=== PATIENT | male | born 1990 | race Caucasian/White ===

== ENCOUNTER 2017-03-16 14:35 | Emergency (ER) | payer OTHER ==
--- NOTE | 2017-03-16 16:56 | ER Document Report ---
ED Neck/Back Problem - General Chief Complaint: Low Back Pain Stated Complaint: BACK PAIN Time Seen by Provider: 03/16/17 16:42 Notes: 26 yo male c/o acute low back pain x 1 day. felt sharp pain to mid low back when bending over today. no radiculopathy, no paresthesia, no bowel/bladder dysfunction. denies fever. no trauma. 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 admits to lifting an ice chest for his sister 3 days ago, but did not feel any pain at that time. no difficulty walking. no previous back pain. no hx/o metastatic dz. TRAVEL OUTSIDE OF THE [place] IN LAST 30 DAYS: No - HPI Patient complains to provider of: Pain Onset: This morning Onset: Sudden Timing: Waxing and waning Quality of pain: Achy, Sharp Pain Level: 3 Context: Bending Recent injury: No Associated symptoms: None. denies: Fever, Incontinence, Motor loss, Numbness/ tingling, Radiation to leg, Unable to urinate Exacerbated by: Other - bending Similar symptoms previously: No Recently seen / treated by doctor: No - Related Data Allergies/Adverse Reactions: No Known Allergies Allergy (Unverified 03/16/17 14:36) Past Medical History - General Information source: Patient - Social History Smoking Status: Never Smoker Frequency of alcohol use: None Drug Abuse: None Lives with: Family Family History: Reviewed & Not Pertinent Patient has suicidal ideation: No Patient has homicidal ideation: No - Medical History Medical History: Negative Review of Systems - Review of Systems Constitutional: No symptoms reported EENT: No symptoms reported Cardiovascular: No symptoms reported Respiratory: No symptoms reported Gastrointestinal: No symptoms reported Genitourinary: No symptoms reported Male Genitourinary: No symptoms reported Musculoskeletal: No symptoms reported Skin: No symptoms reported Hematologic/Lymphatic: No symptoms reported Neurological/Psychological: No symptoms reported -: Yes All other systems reviewed and negative Physical Exam - Vital signs Vitals: Temp Pulse Resp BP Pulse Ox 97.8 F 86 16 152/78 H 98 03/16/17 14:48 03/16/17 14:48 03/16/17 14:48 03/16/17 14:48 03/16/17 14:48 Interpretation: Normal - General General appearance: Appears well, Alert - HEENT Head: Normocephalic, Atraumatic Eyes: Normal Pupils: PERRL - Respiratory Respiratory status: No respiratory distress Chest status: Nontender Breath sounds: Normal Chest palpation: Normal - Cardiovascular Rhythm: Regular Heart sounds: Normal auscultation Murmur: No - Abdominal Inspection: Normal Distension: No distension Bowel sounds: Normal Tenderness: Nontender Organomegaly: No organomegaly - Back Back: Tender - mild tenderness over L3-4. neg SLT. neg heel/toe - Extremities General upper extremity: Normal inspection, Nontender, Normal color, Normal ROM , Normal temperature General lower extremity: Normal inspection, Nontender, Normal color, Normal ROM , Normal temperature, Normal weight bearing. No: Gema's sign - Neurological Neuro grossly intact: Yes Cognition: Normal Orientation: AAOx4 Alice Coma Scale Eye Opening: Spontaneous [place] Coma Scale Verbal: Oriented Alice Coma Scale Motor: Obeys Commands [place] Coma Scale Total: 15 Speech: Normal Motor strength normal: LUE, RUE, LLE, RLE Sensory: Normal - Psychological Associated symptoms: Normal affect, Normal mood - Skin Skin Temperature: Warm Skin Moisture: Dry Skin Color: Normal Course - Re-evaluation Re-evalutation: 03/16/17 16:53 pt presents with acute low back pain without signs of spinal cord compression, cauda equina, infection, aneurysm or other serious etiology. pt is neurologically intact, independently and steadily ambulatory without paresthesia or neurologic deficits. Given the extremely low risk of these diagnoses, further testing in not indicated today. home care, f/u with pcp, ED return precautions discussed with pt. pt is agreeable with plan and stable for discharge. short course of anti-inflammatory medication and muscle relaxant provided. - Vital Signs Vital signs: Temp Pulse Resp BP Pulse Ox 97.8 F 86 16 152/78 H 98 03/16/17 14:48 03/16/17 14:48 03/16/17 14:48 03/16/17 14:48 03/16/17 14:48 Discharge - Discharge Clinical Impression: Acute low back pain Qualifiers: Back pain laterality: midline Sciatica presence: without sciatica Qualified Code(s): M54.5 - Low back pain Instructions: Ice Packs ([facility]), Warm Packs ([facility]), Low Back Pain ([facility]), Muscle Relaxers ([facility]), Ibuprofen (General) ([facility]) Additional Instructions: please take medications as prescribed gentle stretches as demonstrated follow up with primary care if symptoms persist more than 10 days return to ER for any worsening Prescriptions: Ibuprofen [Motrin 800 Mg Tablet] 800 mg PO Q6H #20 tablet Methocarbamol [Robaxin 500 Mg Tablet] 1,000 mg PO Q6 #30 tablet Forms: Return to Work
[2017-03-16 17:27] VITALS: BP 135/74
== END 2017-03-16 17:26 | disposition home or self-care (01) ==
LOC: ER 14:35
DX: M54.5 Low back pain (principal)
CPT/HCPCS: 99283

== ENCOUNTER 2018-02-24 13:33 | Emergency (ER) | payer OTHER ==
[2018-02-24] MEDS ORDERED: NAPROXEN 250 MG TABLET PO ONE (14:05)
[2018-02-24] MEDS ORDERED: PROCHLORPERAZINE MALEATE 10 MG TABLET PO ONE (14:06)
[2018-02-24] MEDS ORDERED: DIPHENHYDRAMINE HCL 50 MG CAPSULE PO ONE (14:06)
--- NOTE | 2018-02-24 14:09 | ER Document Report ---
ED Medical Screen (RME) - General Chief Complaint: Headache Stated Complaint: HEADACHE Time Seen by Provider: 02/24/18 14:02 Notes: 27-year-old male patient complained of a headache for 1/2 days. Took unknown [id number] headache medication his mother gave him which helped and the headache went away. He got up this morning and the headache was present again, so he took that medication again and came to the emergency room. He took the medicine about 11:00 this morning. He complains of the headache being in the temporal area predominantly. Brief exam shows some tenderness to palpate the eyeballs. Some tenderness palpate the temporal area. No frontal sinus percussion tenderness, no maxillary sinus percussion or pressure tenderness. No pain on palpating the inner canthi of the eyes. Patient will be given oral Compazine, Benadryl, and Naprosyn and moved to the main ED for further evaluation. I have greeted and performed a rapid initial assessment of this patient. A comprehensive ED assessment and evaluation of the patient, analysis of test results and completion of the medical decision making process will be conducted by additional ED providers. TRAVEL OUTSIDE OF THE [place] IN LAST 30 DAYS: No - Related Data Allergies/Adverse Reactions: No Known Allergies Allergy (Verified 02/24/18 13:34) Past Medical History - Social History Chew tobacco use (# tins/day): No Drug Abuse: None Renal/ Medical History: Denies: Hx Peritoneal Dialysis Physical Exam - Vital signs Vitals: Temp Pulse Resp BP Pulse Ox 97.9 F 95 16 151/83 H 97 02/24/18 13:36 02/24/18 13:36 02/24/18 13:36 02/24/18 13:36 02/24/18 13:36 Course - Vital Signs Vital signs: Temp Pulse Resp BP Pulse Ox 97.9 F 95 16 151/83 H 97 02/24/18 13:36 02/24/18 13:36 02/24/18 13:36 02/24/18 13:36 02/24/18 13:36
--- NOTE | 2018-02-24 14:19 | ER Document Report ---
ED Headache - General Chief Complaint: Headache Stated Complaint: HEADACHE Time Seen by Provider: 02/24/18 14:02 Mode of Arrival: Ambulatory Information source: Patient Notes: Pt presents complaining of temporal headache off/on that started yesterday. Pt states he did take some DOSHI medicine at home that helped his DOSHI, but when it started to come back today, he decided to come to ER to be seen. Patient denies any recent illness or fever. Patient denies any head injury. Patient denies any photophobia or phonophobia. Patient denies any IV drug use. TRAVEL OUTSIDE OF THE [place] IN LAST 30 DAYS: No - HPI Patient complains to provider of: Headache Onset: Yesterday Onset was: Gradual Timing: Still present Quality of pain: Achy Pain Level: 3 Associated symptoms: denies: Chills, Confusion, Double/blurred vision, Fever, Nausea/vomiting, Neck pain, Photophobia, Stiff neck, Trouble walking Exacerbated by: denies: Light, Noise Similar symptoms previously: No Recently seen / treated by doctor: No - Related Data Allergies/Adverse Reactions: No Known Allergies Allergy (Verified 02/24/18 13:34) Past Medical History - General Information source: Patient - Social History Smoking Status: Never Smoker Chew tobacco use (# tins/day): No Drug Abuse: None 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 denies: Fever, Recent illness EENT: No symptoms reported. denies: Blurred vision Cardiovascular: No symptoms reported Respiratory: No symptoms reported. denies: Cough, Short of breath Gastrointestinal: No symptoms reported. denies: Abdominal pain, Diarrhea, Nausea, Vomiting Genitourinary: No symptoms reported Male Genitourinary: No symptoms reported Musculoskeletal: No symptoms reported. denies: Back pain, Neck pain Skin: No symptoms reported Hematologic/Lymphatic: No symptoms reported Neurological/Psychological: Headaches. denies: Confusion, Weakness Physical Exam - Vital signs Vitals: Temp Pulse Resp BP Pulse Ox 97.9 F 95 16 151/83 H 97 02/24/18 13:36 02/24/18 13:36 02/24/18 13:36 02/24/18 13:36 02/24/18 13:36 - General General appearance: Appears well, Alert In distress: None - HEENT Head: Normocephalic, Atraumatic Eyes: Normal Conjunctiva: Normal Extraocular movements intact: Yes Eyelashes: Normal Pupils: PERRL Ears: Normal Nasal: Normal Mouth/Lips: Normal Mucous membranes: Normal Pharynx: Normal. No: Erythema, Exudate, Tonsillar hypertrophy Neck: Normal, Supple. No: Lymphadenopathy, Meningismus - Respiratory Respiratory status: No respiratory distress Chest status: Nontender Breath sounds: Normal. No: Rales, Rhonchi, Stridor, Wheezing Chest palpation: Normal - Cardiovascular Rhythm: Regular Heart sounds: S1 appreciated, S2 appreciated Murmur: No - Back Back: Normal, Nontender. No: Vertebra tenderness - Extremities General upper extremity: Normal inspection, Normal ROM General lower extremity: Normal inspection, Normal ROM - Neurological Neuro grossly intact: Yes Cognition: Normal Alice Coma Scale Eye Opening: Spontaneous Alice Coma Scale Verbal: Oriented Alice Coma Scale Motor: Obeys Commands [place] Coma Scale Total: 15 - Psychological Associated symptoms: Normal affect, Normal mood - Skin Skin Temperature: Warm Skin Moisture: Dry Skin Color: Normal Course - Re-evaluation Re-evalutation: 02/24/18 15:36 Patient reports headache pain is only down to a 2 out of 5 scale this time. Additional medications ordered. 02/24/18 17:[address] Raines regarding patient presentation and diagnostic evaluation. Patient continues with headache pain 2/5 scale, advises CT imaging of the head. 02/24/18 17:49 Patient reports headache is resolved after fluids finished infusing as well as the additional pain medication. 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 The patient is neurologically intact. Given the extremely low risk of these diagnoses further testing and evaluation for these possibilities does not appear to be indicated at this time. The patient has been instructed to return if the symptoms worsen or change in any way. - Vital Signs Vital signs: Temp Pulse Resp BP Pulse Ox 98.1 F 88 18 134/61 H 99 02/24/18 17:44 02/24/18 17:44 02/24/18 17:44 02/24/18 17:44 02/24/18 17:44 - Diagnostic Test Radiology reviewed: Reports reviewed Discharge - Discharge Clinical Impression: Headache Qualifiers: Headache type: unspecified Headache chronicity pattern: unspecified pattern Intractability: not intractable Qualified Code(s): R51 - Headache Condition: Stable Disposition: HOME, SELF-CARE Instructions: Antinausea Medication ([facility]), Intravenous Compazine for Headaches ([facility]), Use of Diphenhydramine, Headache ([facility]) Additional Instructions: Return immediately for any new or worsening symptoms Followup with your primary care provider, call tomorrow to make a followup appointment Prescriptions: Butalb/Acetaminophen/Caffeine [Fioricet (50-325-40 mg) Tablet] 1 - 2 tab PO Q4H PRN #12 each PRN Reason: Forms: Return to Work Referrals: [facility] [Provider Group] - Follow up as needed
[2018-02-24] MEDS ORDERED: NORMAL SALINE 1000 ML 1,000 ML IV ONE (15:35)
[2018-02-24] MEDS ORDERED: DEXAMETHASONE SOD PHOS INJ 10 MG/1 ML VIAL IV ONE (15:35)
[2018-02-24] MEDS ORDERED: MORPHINE SULFATE 10 MG/ML INJ IV ONE (16:55)
--- NOTE | 2018-02-24 17:33 | RADIOLOGY REPORT (SQ) ---
EXAM DESCRIPTION: CT HEAD WITHOUT COMPLETED DATE/TIME: 02/24/2018 5:21 pm REASON FOR STUDY: DOSHI COMPARISON: None. TECHNIQUE: Axial images acquired through the brain without intravenous contrast. Images reviewed wi th bone, brain and subdural windows. Additional sagittal and coronal reconstructions were generated. Images stored on PACS. All CT scanners at this facility use dose modulation, iterative reconstruction, and/or weight based d osing when appropriate to reduce radiation dose to as low as reasonably achievable (ALARA). [facility]: Dose Right [facility]: CareDose [facility]: Dose Right [facility]: Teradose 4D [facility]: Tixie ([employer] RADIATION DOSE: CT Rad equipment meets quality standard of care and radiation dose reduction techniq ues were employed. CTDIvol: 48.6 mGy. DLP: 902 mGy-cm. mGy. LIMITATIONS: None. FINDINGS: VENTRICLES: Normal size and contour. CEREBRUM: No masses. No hemorrhage. No midline shift. No evidence for acute infarction. Normal gra y/white matter differentiation. No areas of low density in the white matter. CEREBELLUM: No masses. No hemorrhage. No alteration of density. No evidence for acute infarction. EXTRAAXIAL SPACES: No fluid collections. No masses. ORBITS AND GLOBE: No intra- or extraconal masses. Normal contour of globe without masses. CALVARIUM: No fracture. PARANASAL SINUSES: No fluid or mucosal thickening. SOFT TISSUES: No mass or hematoma. OTHER: No other significant finding. IMPRESSION: NORMAL BRAIN CT WITHOUT CONTRAST. EVIDENCE OF ACUTE STROKE: NO. COMMENT: Quality ID # [id number]: Final reports with documentation of one or more dose reduction techniques (e.g., Automated exposure control, adjustment of the mA and/or kV according to patient size, use of iterative reconstruction technique) TECHNICAL DOCUMENTATION: JOB ID: [id number] [employer]- All Rights Reserved Reading location - IP/workstation name: [email or web address]
[2018-02-24 17:45] VITALS: BP 134/61
== END 2018-02-24 18:24 | disposition home or self-care (01) ==
LOC: ER 13:33
DX: R51 Headache (principal)
CPT/HCPCS: 99284; 96361; 96374; 96375; 70450; J2270; S0183; J7030; J1100

== ENCOUNTER 2019-10-31 16:17 | Emergency (ER) | payer OTHER ==
--- NOTE | 2019-10-31 16:38 | ER Document Report ---
ED Medical Screen (RME) - General Chief Complaint: Rectal Bleeding Stated Complaint: RECTAL BLEEDING Time Seen by Provider: 10/31/19 16:37 Information source: Patient Notes: This is a 29-year-old male presented to the emergency room today stating he had right red blood coming from his rectum he went to an urgent care clinic thinking it might of been a hemorrhoid he states that they suggested he come here that upon evaluation it was not a hemorrhoid and he is still leaking blood now even when he sits. It is bright red in nature. TRAVEL OUTSIDE OF THE [place] IN LAST 30 DAYS: No - Related Data Allergies/Adverse Reactions: No Known Allergies Allergy (Verified 02/24/18 13:34) Past Medical History Renal/ Medical History: Denies: Hx Peritoneal Dialysis Physical Exam - Vital signs Vitals: Temp Pulse Resp BP Pulse Ox 97.6 F 116 H 18 153/87 H 99 10/31/19 16:23 10/31/19 16:23 10/31/19 16:23 10/31/19 16:23 10/31/19 16:23 Course - Vital Signs Vital signs: Temp Pulse Resp BP Pulse Ox 97.6 F 116 H 18 153/87 H 99 10/31/19 16:23 10/31/19 16:23 10/31/19 16:23 10/31/19 16:23 10/31/19 16:23
[2019-10-31 17:43] LABS: ABSOLUTE BASOPHILS # (AUTO) 0.1 10^3/uL (0.0-0.2); ABSOLUTE EOSINOPHILS # (AUTO) 0.1 10^3/uL (0.0-0.6); ABSOLUTE LYMPHOCYTES (AUTO) 1.2 10^3/uL (0.5-4.7); ABSOLUTE MONOCYTES (AUTO) 0.8 10^3/uL (0.1-1.4); ABSOLUTE NEUT (AUTO) 11.1 10^3/uL (1.7-8.2); BASOPHILS % (AUTO) 0.9 % (0-2); EOSINOPHILS % (AUTO) 0.8 % (0-6); HEMATOCRIT 46.3 % (37.9-51.0); HEMOGLOBIN 16.3 g/dL (13.5-17.0); LYMPHOCYTES % (AUTO) 9.2 % (13-45); MEAN CORPUSCULAR HEMOGLOBIN 29.6 pg (27.0-33.4); MEAN CORPUSCULAR HGB CONC 35.1 g/dL (32.0-36.0); MEAN CORPUSCULAR VOLUME 84 fl (80-97); PLATELET COUNT 325 10^3/uL (150-450); RED BLOOD COUNT 5.49 10^6/uL (4.35-5.55); RED CELL DISTRIBUTION WIDTH 12.8 % (11.5-14.0); SEGMENTED NEUTROPHILS % (AUTO) 83.1 % (42-78); TOTAL CELLS COUNTED % (AUTO) 100 %; WHITE BLOOD COUNT 13.3 10^3/uL (4.0-10.5)
[2019-10-31 17:57] LABS: URINE AMPHETAMINES SCREEN NEGATIVE; URINE BARBITURATES SCREEN NEGATIVE; URINE BENZODIAZEPINES SCREEN NEGATIVE; URINE COCAINE SCREEN NEGATIVE; URINE MARIJUANA (THC) SCREEN NEGATIVE; URINE METHADONE SCREEN NEGATIVE; URINE PHENCYCLIDINE SCREEN NEGATIVE
[2019-10-31 17:59] LABS: ALBUMIN 4.9 g/dL (3.5-5.0); ALKALINE PHOSPHATASE 84 U/L (38-126); ANION GAP 10 (5-19); ASPARTATE AMINO TRANSFERASE 33 U/L (17-59); BILIRUBIN,DIRECT 0.2 mg/dL (0.0-0.4); BILIRUBIN,TOTAL 0.9 mg/dL (0.2-1.3); BLOOD UREA NITROGEN 16 mg/dL (7-20); CARBON DIOXIDE 26 mmol/L (22-30); CHLORIDE 102 mmol/L (98-107); GLUCOSE 109 mg/dL (75-110); POTASSIUM 4.5 mmol/L (3.6-5.0); TOTAL PROTEIN 8.5 g/dL (6.3-8.2)
--- NOTE | 2019-10-31 20:06 | EKG REPORT ---
SEVERITY:- OTHERWISE NORMAL ECG - SINUS RHYTHM BORDERLINE LEFT AXIS DEVIATION : Confirmed by: Briseyda Chaudhari MD 31-Oct-2019 20:05:33
[2019-10-31 20:11] LABS: PROTHROMBIN TIME 13.2 SEC (11.4-15.4)
[2019-10-31 20:12] LABS: PARTIAL THROMBOPLASTIN TIME 33.2 SEC (23.5-35.8)
[2019-10-31 20:13] LABS: AMORPHOUS SEDIMENT,URINE 1+ /HPF; APPEARANCE,URINE TURBID; BILIRUBIN,URINE NEGATIVE (NEGATIVE); COLOR,URINE YELLOW; GLUCOSE, URINE NEGATIVE (NEGATIVE); KETONES,URINE NEGATIVE (NEGATIVE); LEUKOCYTE ESTERASE,URINE NEGATIVE (NEGATIVE); NITRITE,URINE NEGATIVE (NEGATIVE); PROTEIN,URINE NEGATIVE (NEGATIVE); URINE SPECIFIC GRAVITY 1.029
--- NOTE | 2019-10-31 20:46 | ER Document Report ---
ED General - General Chief Complaint: Rectal Bleeding Stated Complaint: RECTAL BLEEDING Time Seen by Provider: 10/31/19 16:37 TRAVEL OUTSIDE OF THE [place] IN LAST 30 DAYS: No - HPI Notes: 29-year-old male history of intermittent constipation, hemorrhoids presents with rectal bleeding intermittently for 1 week. Patient says he has had bright red blood from his rectum with stools and few times has come out on its own. Went to urgent care who referred patient to the ED. Patient had a similar episode of this approximately 1 month before and resolved on its own without intervention. Patient says blood has stained underwear but quantity has never been more than enough to stain fabric, too small to be measured in spoonfuls or cupfuls. Patient otherwise feels well. Patient denies any abdominal pain, anal trauma, foreign bodies, anal sex, bleeding diatheses, family history, fever, vomiting, or anticoagulation, dizziness, chest pain, shortness of breath, and syncope. - Related Data Allergies/Adverse Reactions: No Known Allergies Allergy (Verified 02/24/18 13:34) Past Medical History - General Information source: Patient - Social History Smoking Status: Never Smoker Chew tobacco use (# tins/day): No Frequency of alcohol use: None Drug Abuse: None Family History: Reviewed & Not Pertinent Renal/ Medical History: Denies: Hx Peritoneal Dialysis Review of Systems - Review of Systems Notes: REVIEW OF SYSTEMS: CONSTITUTIONAL : Denies fever, chills, or sweats. EENT: Denies recent cold/sinus symptoms, denies throat pain CARDIOVASCULAR: Denies chest pain, DARNELL RESPIRATORY: Denies cough, denies shortness of breath. GASTROINTESTINAL: Denies abdominal pain, nausea/vomiting. GENITOURINARY: Denies difficulty urinating, painful urination. MUSCULOSKELETAL: Denies neck pain, back pain. SKIN: Denies rash or skin lesions. HEMATOLOGIC : Denies easy bruising, +bleeding LYMPHATIC: Denies swollen, enlarged glands. NEUROLOGICAL: Denies headache, denies change in gait. PSYCHIATRIC: Denies anxiety or stress or depression. Physical Exam - Vital signs Vitals: Temp Pulse Resp BP Pulse Ox 97.6 F 116 H 18 153/87 H 99 10/31/19 16:23 10/31/19 16:23 10/31/19 16:23 10/31/19 16:23 10/31/19 16:23 - Notes Notes: PHYSICAL EXAMINATION: GENERAL: Well-appearing, well-nourished and in no acute distress. HEAD: Atraumatic, normocephalic. EYES: Pupils equal round and appropriate constriction, sclera anicteric, conju nctiva are normal. ENT: nares patent, moist mucous membranes. NECK: Normal range of motion, supple without lymphadenopathy LUNGS: Normal respiratory rate and effort, speaking in full sentences HEART: Regular rate, no JVD, no lower extremity edema ABDOMEN: Soft, nontender, no guarding, no masses, no CVAT. Rectal exam nontender, no external hemorrhoids, very small amount of red blood mixed in with brown stool in rectal vault EXTREMITIES: Normal range of motion, no pitting or edema. No cyanosis. NEUROLOGICAL: Awake, alert, conversing appropriately, moves all extremities spontaneously. PSYCH: Normal mood, normal affect. SKIN: Warm, Dry, normal turgor, no rashes or lesions noted. Course - Re-evaluation Re-evalutation: 10/31/19 20:45 Patient has had very small amounts of rectal bleeding over the course of 1 week. Patient has no anal tenderness, fever, or discharge, no signs of anal fissure or perianal abscess. Patient tachycardic at time triage vitals were taken immediately after exerting himself to move to triage room, tachycardia had resolved at time of my exam without any intervention. Unlikely secondary to blood loss given patient has had very small volume of bleeding and has normal hemoglobin and currently normal heart rate. No signs of diverticular bleed and no abdominal pain or tenderness. No signs of significant hemorrhoidal bleeding that would require emergent surgical intervention. Patient stable for follow-up outpatient with leaflet or newspaper deliverer who can refer patient to ceramic tiler if necessary. I obtained coags to ensure that there is no bleeding diathesis that was contributing to patient's symptoms which were normal. No signs of liver or renal dysfunction causing symptoms. Patient has leukocytosis of 13, but no signs of infection on his exam, no signs on his history, I discussed this with patient and informed him that there was an abnormal finding in his blood work and that he should follow this up with a primary doctor and that there are dangerous diseases such as leukemia that can cause high white blood cells so this follow-up is very important. Gave patient instructions on following up with leaflet or newspaper deliverer and gave patient extensive return to ED precautions which he demonstrated understanding of. Patient ready for discharge, denies having any other questions or concerns at time of discharge. Will give patient copy of all results to take with him for follow-up. - Vital Signs Vital signs: Temp Pulse Resp BP Pulse Ox 98.3 F 98 17 136/65 H 100 10/31/19 20:43 10/31/19 20:43 10/31/19 20:43 10/31/19 20:43 10/31/19 20:43 - Laboratory Result Diagrams: 10/31/19 17:20 10/31/19 17:20 Laboratory results interpreted by me: 10/31/19 10/31/19 10/31/19 17:20 17:20 17:20 WBC 13.3 H Lymph % (Auto) 9.2 L Absolute Neuts (auto) 11.1 H Seg Neutrophils % 83.1 H Total Protein 8.5 H Urine Blood SMALL H Urine Urobilinogen 2.0 H Discharge - Discharge Clinical Impression: Anal bleeding High blood pressure Qualifiers: Hypertension type: unspecified Qualified Code(s): I10 - Essential (primary) hypertension Leukocytosis Qualifiers: Leukocytosis type: unspecified Qualified Code(s): D72.829 - Elevated white blood cell count, unspecified Disposition: HOME, SELF-CARE Additional Instructions: Rectal Bleeding, Unclear Cause No definite cause has been found for the rectal bleeding you have experienced. Among the possible causes are internal or external hemorrhoids (internal hemorrhoids can't be felt on the outside), an anal fissure (a crack at the anal ring), infections or inflammatory diseases of the colon, tumors or polyps, or diverticula (diverticula are outpouchings from the colon wall). To establish a cause for your bleeding (or at least make certain there is no serious problem such as a tumor), further evaluation will be necessary. This may include special X-rays, or passage of a scope up into the colon. Be sure to keep your follow-up appointment. Should you develop brisk bleeding, abdominal pain, fever, lightheadedness, or fever, call the doctor or return at once. Hemorrhoids You likely have hemorrhoids. These are formed by enlargement of veins around the anus. The cause is increased pressure in the veins, from or straining at bowel movements. Hemorrhoids often cause itching and bleeding with bowel movements. . Eat a high-fiber diet. Stool softeners such as Metamucil will help. You should call the doctor or return if you develop fever, increasing pain, or an enlarging mass around the anus, or if you simply fail to improve with autumn tment. Follow-up with your primary doctor and leaflet or newspaper deliverer within 1 week. If you should develop increased bleeding, dizziness, chest pain, trouble breathing, fainting, abdominal pain, fever, or any other worsening or alarming symptoms return to the emergency department immediately. Your blood pressure was elevated during this emergency department visit, have this rechecked by primary doctor as undiagnosed high blood pressure can cause heart attacks, strokes, and . You also had high white blood cells which you should discuss with the primary doctor as this can be related to dangerous conditions such as leukemia a type of cancer. Referrals: JAMES MCCLURE MD [ACTIVE STAFF] - Follow up as needed [facility] [Provider Group] - Follow up as needed
[2019-10-31 21:01] VITALS: BP 136/65
== END 2019-10-31 21:35 | disposition home or self-care (01) ==
LOC: ER 16:17
DX: K62.5 Hemorrhage of anus and rectum (principal); D72.829 Elevated white blood cell count, unspecified; I10 Essential (primary) hypertension; K59.00 Constipation, unspecified; K64.9 Unspecified hemorrhoids
CPT/HCPCS: 36415; 80053; 80307; 81001; 84484; 85025; 85610; 85730; 93005; 93010; 99283

== ENCOUNTER 2019-11-05 10:53 | Emergency (ER) | payer OTHER ==
--- NOTE | 2019-11-05 11:24 | ER Document Report ---
ED General - General Chief Complaint: Fever Stated Complaint: FEVER Time Seen by Provider: 11/05/19 11:06 TRAVEL OUTSIDE OF THE [place] IN LAST 30 DAYS: No - HPI Notes: Chief complaint: Fever History of present illness: 29-year-old male presents for evaluation of fever. Patient is generally healthy. He was seen here last week for external hemorrhoids with some minor bleeding by another provider. He still having some irritation has a small amount of bleeding when he has a bowel movement. He says he was not given any prescription medications at time of that visit. He had gone back to see his primary care physician day and when he went in they took his temperature and found this to be 100.3. He is otherwise asymptomatic. They refused to see him in the office and he decided he should come to the emergency department. Specifically he denies respiratory symptoms, skin rashes, nausea, vomiting or diarrhea. He denies any known exposure to COVID and had no awareness of fever when he went to his physician's office. He denies headaches or myalgias. - Related Data Allergies/Adverse Reactions: No Known Allergies Allergy (Verified 02/24/18 13:34) Past Medical History - General Information source: Patient, [facility] Records - Social History Smoking Status: Never Smoker Frequency of alcohol use: None Drug Abuse: None Family History: Reviewed & Not Pertinent - Past Medical History Cardiac Medical History: Reports: None Pulmonary Medical History: Reports: None Endocrine Medical History: Denies: Hx Diabetes Mellitus Type 1, Hx Diabetes Mellitus Type 2 Renal/ Medical History: Denies: Hx Peritoneal Dialysis GI Medical History: Reports: Other - Hemorrhoids Review of Systems - Review of Systems Notes: Constitutional: As per HPI. HENT: Negative for sore throat. Eyes: Negative for visual changes. Cardiovascular: Negative for chest pain. Respiratory: Negative for shortness of breath. Gastrointestinal: As per HPI. Genitourinary: Negative for dysuria. Musculoskeletal: Negative for back pain. Skin: Negative for rash. Neurological: Negative for headaches, weakness or numbness. 10 point ROS negative except as marked above and in HPI. Physical Exam - Vital signs Vitals: Temp Pulse Resp BP Pulse Ox 98.2 F 109 H 20 135/84 H 99 11/05/19 11:11/05/19 11:11/05/19 11:11/05/19 11:11/05/19 11:07 - Notes Notes: GENERAL: Somewhat obese male of approximately stated age appearing in no acute distress. SKIN: Good turgor no rashes. HEAD: Normocephalic atraumatic. EYES: PERRLA. EOMI. Conjunctivae and sclerae clear. EARS: CANALS AND TMS CLEAR. NOSE: CLEAR. MOUTH: Moist mucosa. Good dentition. No stridor or edema. No drooling. NECK: Supple. No masses or thyromegaly. No adenopathy. Carotids 2+ without bruits. No JVD. BACK: Symmetrical without tenderness. CHEST: Respirations unlabored. Breath sounds clear and symmetrical. HEART: Regular rhythm. No murmur gallop or rub. ABDOMEN: Soft nontender without masses, organomegaly or rebound. Bowel sounds normally active. No bruits. GENITALIA: Deferred. EXTREMITIES: No edema. No calf tenderness. Cap refill less than 1.5 seconds. Dorsalis pedis and posterior tibial pulses 3+ and symmetrical. NEUROLOGICAL: GCS 15. Alert and oriented x3. Normal gait. Fluent speech. Cranial nerves II through XII intact. Sensorimotor and cerebellar normal. Norm al tone. PSYCHIATRIC: Appropriate affect. Course - Re-evaluation Re-evalutation: 11/05/19 11:23 Patient is afebrile here and I question the validity of the temperature reading done at physician's office as ambient temperature resumed 90s here now. I will send a COVID swab for the patient. He is instructed in self-isolation pending results of the testing. I am going to give him some symptomatic treatment for his hemorrhoids and suggest follow-up with primary care physician. - Vital Signs Vital signs: Temp Pulse Resp BP Pulse Ox 98.2 F 109 H 20 135/84 H 99 11/05/19 11:07 11/05/19 11:07 11/05/19 11:07 11/05/19 11:07 11/05/19 11:07 Discharge - Discharge Clinical Impression: Suspected 2019-nCoV infection, External hemorrhoids Fever Qualifiers: Fever type: unspecified Qualified Code(s): R50.9 - Fever, unspecified Condition: Stable Disposition: HOME, SELF-CARE Additional Instructions: Hemorrhoids You have hemorrhoids. These are formed by enlargement of veins around the anus. The cause is increased pressure in the veins, from or straining at bowel movements. Hemorrhoids often cause itching and bleeding with bowel movements. When a hemorrhoid becomes clotted, severe pain and swelling result. Soothing creams and suppositories are often prescribed. Warm sitz-baths may also decrease pain, swelling, and itching. Eat a high-fiber diet. Stool softeners such as Metamucil will help. Keep the area very clean. Medicated cleansing pads (such as Tucks) are useful after bowel movements. A hose-mounted shower unit (like a shower massager at low water pressure) can be used to clean around tender hemorrhoid tags. You should call the doctor or return if you develop fever, increasing pain, or an enlarging mass around the anus, or if you simply fail to improve with treatment.Use prescribed medication as directed. Soak in a warm tub for 15 minutes 3 times a day. Follow-up with your primary care provider within the next 1 week. Remain on self-isolation until you receive telephone results of your COVID testing. Return here as needed for new or worsening symptoms. Prescriptions: Hydrocortisone [Anusol-Hc] 30 gm RC ASDIR PRN 10 Days #1 cream.gm. PRN Reason: Docusate Sodium [Colace 100 mg Capsule] 100 mg PO DAILY #30 capsule
[2019-11-05 12:02] VITALS: BP 126/74
== END 2019-11-05 12:02 | disposition home or self-care (01) ==
LOC: ER 10:53
DX: K64.4 Residual hemorrhoidal skin tags (principal); R50.9 Fever, unspecified; Z20.828 Contact with and (suspected) exposure to other viral communicable diseases
CPT/HCPCS: 99283; 87635; C9803

== ENCOUNTER 2019-11-07 06:33 | Emergency (ER) | payer OTHER ==
[2019-11-07 08:22] LABS: ABSOLUTE BASOPHILS # (AUTO) 0.1 10^3/uL (0.0-0.2); ABSOLUTE EOSINOPHILS # (AUTO) 0.2 10^3/uL (0.0-0.6); ABSOLUTE LYMPHOCYTES (AUTO) 1.5 10^3/uL (0.5-4.7); ABSOLUTE MONOCYTES (AUTO) 1.3 10^3/uL (0.1-1.4); ABSOLUTE NEUT (AUTO) 12.1 10^3/uL (1.7-8.2); BASOPHILS % (AUTO) 0.6 % (0-2); HEMATOCRIT 43.5 % (37.9-51.0); HEMOGLOBIN 15.1 g/dL (13.5-17.0); LYMPHOCYTES % (AUTO) 9.6 % (13-45); MEAN CORPUSCULAR HEMOGLOBIN 29.1 pg (27.0-33.4); MEAN CORPUSCULAR HGB CONC 34.8 g/dL (32.0-36.0); MEAN CORPUSCULAR VOLUME 84 fl (80-97); MONOCYTES % (AUTO) 8.8 % (3-13); PLATELET COUNT 364 10^3/uL (150-450); RED BLOOD COUNT 5.19 10^6/uL (4.35-5.55); RED CELL DISTRIBUTION WIDTH 12.3 % (11.5-14.0); TOTAL CELLS COUNTED % (AUTO) 100 %; WHITE BLOOD COUNT 15.1 10^3/uL (4.0-10.5)
[2019-11-07 08:39] LABS: ALBUMIN 4.2 g/dL (3.5-5.0); ALKALINE PHOSPHATASE 92 U/L (38-126); ANION GAP 8 (5-19); ASPARTATE AMINO TRANSFERASE 20 U/L (17-59); BILIRUBIN,DIRECT 0.2 mg/dL (0.0-0.4); BILIRUBIN,TOTAL 0.9 mg/dL (0.2-1.3); BLOOD UREA NITROGEN 13 mg/dL (7-20); CALCIUM 9.6 mg/dL (8.4-10.2); CARBON DIOXIDE 27 mmol/L (22-30); CHLORIDE 104 mmol/L (98-107); GLUCOSE 123 mg/dL (75-110); POTASSIUM 3.8 mmol/L (3.6-5.0); TOTAL PROTEIN 7.6 g/dL (6.3-8.2)
--- NOTE | 2019-11-07 09:13 | ER Document Report ---
ED General - General Chief Complaint: Rectal Bleeding Stated Complaint: RECTAL BLEEDING Time Seen by Provider: 11/07/19 08:28 Primary Care Provider: MAYO GASTELUM MD [ACTIVE STAFF] - Follow up as needed Notes: 29-year-old male with past medical history of rectal bleeding. States he has had some rectal bleeding for one week. Denies any painful bowel movements. Notes blood in the toliet bowel. Pain has increased and he notices a mass and pain with sitting down. Was seen in the ER two times previously diagnosed with hemorrhoids, given hydrocortisone rectal and colace which has not provided relief. Denies any fevers, chills or worsening symptoms. - Related Data Allergies/Adverse Reactions: No Known Allergies Allergy (Verified 11/07/19 06:43) Home Medications: Hydrocortisone cream, colace Past Medical History - Social History Smoking Status: Never Smoker Frequency of alcohol use: None Drug Abuse: None Family History: Reviewed & Not Pertinent Endocrine Medical History: Denies: Hx Diabetes Mellitus Type 1, Hx Diabetes Mellitus Type 2 Renal/ Medical History: Denies: Hx Peritoneal Dialysis Review of Systems - Review of Systems Constitutional: No symptoms reported EENT: No symptoms reported Cardiovascular: No symptoms reported Respiratory: No symptoms reported Gastrointestinal: See HPI Genitourinary: No symptoms reported Male Genitourinary: No symptoms reported Skin: No symptoms reported Hematologic/Lymphatic: No symptoms reported Neurological/Psychological: No symptoms reported Physical Exam - Vital signs Vitals: Temp Pulse Resp BP Pulse Ox 98.5 F 122 H 20 152/101 H 100 11/07/19 06:39 11/07/19 06:39 11/07/19 06:39 11/07/19 06:39 11/07/19 06:39 Interpretation: Normal - Notes Notes: Adult General: GENERAL: Alert, interacts well. No acute distress HEAD: Normocephalic, atraumatic EYES: Pupils equal, round and reactive to light. Extraocular movements intact. ENT: Oral mucosa moist, tongue midline. Oropharynx unremarkable. Airway patent. Nares patent, sinuses nontender, ear canals unremarkable, TMs intact. No Trismus. NECK: Full range of motion. Supple. Trachea midline. No lymphadenopathy. LUNGS: Clear to auscultation bilaterally, no wheezes, rales, or rhonchi. No respiratory distress. Nontender chest wall. HEART: Regular rate and rhythm. No murmurs, rubs or gallops. ABDOMEN: Soft, nontender. Nondistended. (-) [place] sign. Bowel sounds present in all 4 quadrants. No rebound, guarding or masses. GENITOURINARY: Rectal tenderness to the right inner buttock, warmth, swelling tenderness, active bleeding and purulence on inner right buttock. Rectum is tender to palpation. Good rectal tone. EXTREMITIES: Moves all 4 extremities spontaneously. BACK: No cervical, thoracic, lumbar midline tenderness. No saddle anesthesia, normal distal neurovascular exam. Moves all extremities with full range of motion. NEUROLOGICAL: Alert and oriented x3. Normal speech. Strength 5/ 5 in all extremities. PSYCH: Normal affect, normal mood. SKIN: Warm, dry, normal turgor. No rashes or lesions noted. Course - Re-evaluation Re-evalutation: 11/07/19 11:03 Ct scan abdomen pelvis ordered. It notes a perirectal abscess approximately 4.7 x 4.6 x 1.[address] Puente was called. States that he will come see the patient. Dr. Puente agrees to drain the abscess. Recommends antibiotics and pain medications. Antibiotics prescribed and pain medications prescribed. Patient was reevaluted. States he has had improvement in his pain. I discussed wound care and return precautions. Patient is aware he is to follow up with Dr. Puente on Tuesday. Return precautions discussed. Patient acknowledges and verbalizes understanding of instructions and plan. All questions answered. - Vital Signs Vital signs: Temp Pulse Resp BP Pulse Ox 98.2 F 101 H 18 122/67 97 11/07/19 14:00 11/07/19 14:00 11/07/19 14:00 11/07/19 14:00 11/07/19 14:00 - Laboratory Result Diagrams: 11/07/19 08:05 11/07/19 08:05 Laboratory results interpreted by me: 11/07/19 11/07/19 08:05 08:05 WBC 15.1 H Lymph % (Auto) 9.6 L Absolute Neuts (auto) 12.1 H Seg Neutrophils % 80.0 H Glucose 123 H Discharge - Discharge Clinical Impression: Perianal abscess Condition: Stable Disposition: HOME, SELF-CARE Instructions: Abscess ([facility]), Post Incision and Drainage Additional Instructions: You have been diagnosed with a perianal abscess. This has been drained at bedside by our surgeon Dr. Puente. He has given you return precautions and wound care and recommends you follow up in his office on Tuesday. Please call his office to schedule an appointment. Please follow the wound care instructions. I will prescribe you antibiotics and pain medicine at this time. Please return to the emergency department if you have worsening symptoms or development of new symptoms. Please also follow-up with your primary care provider to ensure resolution of your symptoms. Prescriptions: Clindamycin HCl 300 mg PO QID 7 Days #28 capsule Referrals: MAYO GASTELUM MD [ACTIVE STAFF] - Follow up as needed
--- NOTE | 2019-11-07 10:20 | RADIOLOGY REPORT (SQ) ---
EXAM DESCRIPTION: CT ABD/PELVIS WITH IV ONLY IMAGES COMPLETED DATE/TIME: 11/07/2019 10:08 am REASON FOR STUDY: perirectal abscess COMPARISON: None. TECHNIQUE: CT scan of the abdomen and pelvis performed using helical scanning technique with dynamic intravenous contrast injection. No oral contrast. Images reviewed with lung, soft tissue, and bone windows. Reconstructed coronal and sagittal MPR images reviewed. Delayed images for evaluation of the urinary system also acquired. All images stored on PACS. All CT scanners at this facility use dose modulation, iterative reconstruction, and/or weight based d osing when appropriate to reduce radiation dose to as low as reasonably achievable (ALARA). [facility]: Dose Right [facility]: CareDose [facility]: Dose Right [facility]: Teradose 4D [facility]: The Gluten Free Gourmet CONTRAST TYPE AND DOSE: contrast/concentration: Isovue 350.00 mmol/ml; Total Contrast Delivered: 100 .0 ml; Total Saline Delivered: 67.9 ml RENAL FUNCTION: GFR > 60. RADIATION DOSE: CT Rad equipment meets quality standard of care and radiation dose reduction techniq ues were employed. CTDIvol: NaN - NaN mGy. DLP: 0 mGy-cm.. LIMITATIONS: None. FINDINGS: LOWER CHEST: No significant findings. No nodules or infiltrates. LIVER: Normal size. No masses. No dilated ducts. SPLEEN: Normal size. No focal lesions. PANCREAS: No masses. No significant calcifications. No adjacent inflammation or peripancreatic fluid collections. Pancreatic duct not dilated. GALLBLADDER: No identified stones by CT criteria. No inflammatory changes to suggest cholecystitis. ADRENAL GLANDS: No significant masses or asymmetry. RIGHT KIDNEY AND URETER: No solid masses. No significant calcifications. No hydronephrosis or hyd roureter. LEFT KIDNEY AND URETER: No solid masses. No significant calcifications. No hydronephrosis or hydr oureter. AORTA AND VESSELS: No aneurysm. No dissection. Renal arteries, SMA, celiac without stenosis. RETROPERITONEUM: No retroperitoneal adenopathy, hemorrhage or masses. BOWEL AND PERITONEAL CAVITY: No masses or inflammatory changes. No free fluid or peritoneal masses. APPENDIX: Normal. PELVIS: The bladder is largely decompressed. No pelvic mass or free fluid. ABDOMINAL WALL: No masses. No hernias. BONES: No acute findings. OTHER: There is a 4.7 x 4.6 x 1.9 cm rim enhancing fluid collection right anterolateral to the rectum IMPRESSION: 4.7 x 4.6 x 1.9 cm perirectal abscess. TECHNICAL DOCUMENTATION: JOB ID: [id number] Quality ID # [id number]: Final reports with documentation of one or more dose reduction techniques (e.g., Au tomated exposure control, adjustment of the mA and/or kV according to patient size, use of iterative reconstruction technique) 2010 [employer]- All Rights Reserved Reading location - IP/workstation name: [email or web address]
--- NOTE | 2019-11-07 11:17 | PDOC CONSULTATION ---
Consultation Consult Date: 11/07/19 Provider Consulted: SURGICAL SURGICALIST Consult reason:: buttock abscess History of Present Illness History of Present Illness: JOHN AREVALO IV is a 29 year old male seen in consultation at the request of the emergency physician. This is a patient with a 2-week history of perirectal pain and swelling. The patient has been diagnosed with a perianal abscess, involving the buttock and perineum. He has increasing redness, pain, and now purulent drainage. He does report fevers and chills at home. He denies nausea, vomiting, headache, dizziness, orthostasis, chest pain, shortness of breath, melena, hematochezia, or hematemesis. His pain is rated at 8 out of 10. It is sharp and stabbing. It does not radiate. Past Medical History Endocrine Medical History: Denies: Diabetes Mellitus Type 1, Diabetes Mellitus Type 2 Social History Smoking Status: Never Smoker Hx Recreational Drug Use: No Hx Prescription Drug Abuse: No Family History Family History: Reviewed & Not Pertinent Parental Family History Reviewed: Yes Children Family History Reviewed: Yes Sibling(s) Family History Reviewed.: Yes Medication/Allergy Home Medications: Ibuprofen [Motrin 800 Mg Tablet] 800 mg PO Q6H #20 tablet 03/16/17 Methocarbamol [Robaxin 500 Mg Tablet] 1,000 mg PO Q6 #30 tablet 03/16/17 Butalb/Acetaminophen/Caffeine [Fioricet (50-325-40 mg) Tablet] 1 - 2 tab PO Q4H PRN #12 each 02/24/18 Docusate Sodium [Colace 100 mg Capsule] 100 mg PO DAILY #30 capsule 11/05/19 Hydrocortisone [Anusol-Hc] 30 gm RC ASDIR PRN 10 Days #1 cream.gm. 11/05/19 Allergies/Adverse Reactions: No Known Allergies Allergy (Verified 11/07/19 06:43) Review of Systems Constitutional: PRESENT: chills. ABSENT: anorexia, fatigue, weakness Eyes: ABSENT: visual disturbances Ears: ABSENT: hearing changes Nose, Mouth, and Throat: ABSENT: sore throat Cardiovascular: ABSENT: chest pain Respiratory: ABSENT: cough, dyspnea Gastrointestinal: PRESENT: other - Rectal pain and drainage. ABSENT: abdominal pain, bloating Genitourinary: ABSENT: dysuria Musculoskeletal: ABSENT: back pain Integumentary: ABSENT: diaphoresis Neurological: ABSENT: confusion, convulsions, dizziness Psychiatric: ABSENT: anxiety, depression Endocrine: ABSENT: cold intolerance, heat intolerance Hematologic/Lymphatic: ABSENT: easy bleeding, easy bruising Physical Exam Vital Signs: Temp Pulse Resp BP Pulse Ox 98.8 F 98 18 136/95 H 100 11/07/19 08:04 11/07/19 08:04 11/07/19 08:04 11/07/19 08:04 11/07/19 08:04 Intake & Output 11/06/19 11/07/19 11/08/19 06:59 06:59 06:59 Weight 132.7 kg General appearance: PRESENT: no acute distress, cooperative Head exam: PRESENT: atraumatic, normocephalic Eye exam: PRESENT: EOMI, PERRLA. ABSENT: scleral icterus Mouth exam: ABSENT: neck supple Neck exam: ABSENT: meningismus, tenderness, thyromegaly, tracheal deviation Respiratory exam: PRESENT: unlabored. ABSENT: tachypnea, wheezes Cardiovascular exam: ABSENT: tachycardia GI/Abdominal exam: PRESENT: soft. ABSENT: distended, firm, guarding, tenderness Rectal exam: PRESENT: normal rectal tone, tenderness, other - Perianal/buttock abscess with fluctuance, erythema, and purulent drainage in the right anterior area. Extremities exam: ABSENT: clubbing Musculoskeletal exam: ABSENT: deformity Neurological exam: PRESENT: alert, awake, oriented to person, oriented to place, oriented to time, oriented to situation, CN II-XII grossly intact Psychiatric exam: ABSENT: agitated, anxious, depressed Focused psych exam: ABSENT: delusional Skin exam: PRESENT: erythema - perianal. ABSENT: abrasion, cyanosis Results Laboratory Results: 11/07/19 08:05 11/07/19 08:05 11/07/19 11/07/19 08:05 08:05 WBC 15.1 H RBC 5.19 Hgb 15.1 Hct 43.5 MCV 84 MCH 29.1 MCHC 34.8 RDW 12.3 Plt Count 364 Seg Neutrophils % 80.0 H Sodium 138.7 Potassium 3.8 Chloride 104 Carbon Dioxide 27 Anion Gap 8 BUN 13 Creatinine 1.15 Est GFR ( Amer) > 60 Glucose 123 H Calcium 9.6 Total Bilirubin 0.9 AST 20 Alkaline Phosphatase 92 Total Protein 7.6 Albumin 4.2 Impressions: Abdomen/Pelvis CT 11/07/19 09:32 IMPRESSION: 4.7 x 4.6 x 1.9 cm perirectal abscess. Assessment & Plan - Diagnosis (1) Perianal abscess Is this a current diagnosis for this admission?: Yes - Plan Summary Plan Summary: 29-year-old male with a perianal abscess. It is rather large, approximately 3 to 4 cm. It is open with purulent material present, although it appears to be incompletely drained. I have recommended incision and drainage. I have discussed this with the patient at length. He has requested bedside incision and drainage, so that he may return home. I believe this is safe. He should be discharged with oral antibiotics and pain medications. I will perform his I&D at the bedside today. I have discussed the case with the ER provider. She will provide him with antibiotics and pain medicine to go home with. Follow-up at [place] [facility] next Tuesday for follow-up care. Discharge instructions: Leave packing and dressing in place for 24 hours. After 24 hours, remove dressing/packing and shower twice daily. Wash incision with soap and water. Pat dry, and place a dry dressing over top. Follow-up at [facility] on Tuesday. Nursing staff to make appointment.
[2019-11-07] MEDS ORDERED: LIDOCAINE 1%/EPINEPHRINE INJ 20 ML VIAL INJ ONE (11:27)
[2019-11-07] MEDS ORDERED: MORPHINE SULFATE 10 MG/ML INJ IV ONE (11:31)
[2019-11-07] MEDS ORDERED: HYDROCODONE/ACETAMINOPHEN 5-325 MG (6 TAB/ER DISP) PO PRN (13:25)
[2019-11-07 14:05] VITALS: BP 122/67
--- NOTE | 2019-11-07 14:32 | Operative Report ---
Nonrecallable Operative Report DATE OF SURGERY: 11/07/19 PREOPERATIVE DIAGNOSIS: Perianal abscess POSTOPERATIVE DIAGNOSIS: Same as above, likely infected hemorrhoid OPERATION: Incision and drainage of perianal abscess SURGEON: MAYO GASTELUM ANESTHESIA: Local TISSUE REMOVED OR ALTERED: None COMPLICATIONS: None apparent ESTIMATED BLOOD LOSS: Minimal PROCEDURE: Procedure in detail: After informed consent was obtained the patient was laid in the right lateral to this position in the emergency room. The area of the anus and rectum were prepped and draped in a normal sterile fashion. 1% lidocaine with epinephrine was infiltrated into the skin around the rectum. The fluctuant area was easily identified. It was incised with an 11 blade scalpel. There was moderate to large amount of thick, bloody, purulent material. The cavity was digitally inspected. Loculations were broken. All purulent material was cleaned from the area. The wound was then packed with 4 x 4 gauze. A dressing was placed, and the procedure was concluded. All sponge, instrument, and needle counts were correct. Condition: Stable.
== END 2019-11-07 14:05 | disposition home or self-care (01) ==
LOC: ER 06:33
DX: K61.0 Anal abscess (principal); R50.9 Fever, unspecified; K62.5 Hemorrhage of anus and rectum; K64.9 Unspecified hemorrhoids; Z79.1 Long term (current) use of non-steroidal anti-inflammatories (NSAID); Z79.899 Other long term (current) drug therapy
CPT/HCPCS: 99284; 36415; 85025; 80053; 74177; 46050; J3490; J2270